=== PATIENT | male | born 1965 | race Caucasian/White ===

== ENCOUNTER 2021-05-12 04:00 | Emergency (ER) | payer MEDICARE, MEDICAID ==
[~2021-05-12] VITALS: Ht 177.8 cm; Wt 77.3 kg
[~2021-05-12 04:00] MED LIST: AMBIEN 10MG10 MG PO; BENTYL 20MG20 MG/TAB PO; CENTRUM SILVER1 CTB PO; CYMBALTA 60MG60 MG PO; LEVAQUIN 750MG750 M1 PO; LEXAPRO 10MG10 MG PO; NEURONTIN300 MG/CAP PO; NEXIUM 40MG40 MG PO; PERCOCET 325 MG1 TA2 PO; PRAVACHOL 40MG40 MG PO; TYLENOL PM PO; ULTRAM 50MG TAB50 MG PO
[2021-05-12 04:01] VITALS: TEMP 97.4
[2021-05-12 04:52] LABS: BASO # 0.1 K/mm3 (0.0-0.2); BASO % 0.5 % (0.0-2.0); EOS % 0.3 % (0-4.0); GRAN # 11.2 K/mm3 (1.4-6.5); GRAN % 72.8 % (42.2-75.2); HEMATOCRIT 49.7 % (42.0-52.0); HEMOGLOBIN 16.6 g/dl (13.5-18.0); LYMPH # 3.1 K/mm3 (1.2-3.4); LYMPH % 20.3 % (20.0-51.0); MEAN CELL VOLUME 90 fl (80.0-100.0); MEAN CORPUSCULAR HEMOGLOBIN 30 pg (27.0-31.0); MEAN CORPUSCULAR HGB CONC 33 g/dl (33.0-37.0); MEAN PLATELET VOLUME 10.2 fl (7.4-10.4); MONO # 0.9 K/mm3 (0.1-0.6); MONO % 5.7 % (1.7-9.3); PLATELET COUNT 331 K/mm3 (130-400); REDCELL DISTRIBUTION WIDTH-CV 13.3 % (11.5-14.5)
[2021-05-12 05:21] LABS: ALANINE AMINOTRANSFERASE 40 U/L (0-55); ALBUMIN 4.2 gm/dL (3.5-5.0); ALKALINE PHOSPHATASE 97 U/L (40-150); ANION GAP 16 mmol/L (7-16); AST,SGOT 34 U/L (5-34); BILIRUBIN,TOTAL 0.8 mg/dL (0.2-1.2); BLOOD UREA NITROGEN 14 mg/dL (8-26); CALCIUM 10.9 mg/dL (8.4-10.2); CARBON DIOXIDE 19 mmol/L (22-29); CHLORIDE 106 mmol/L (98-107); CREATININE, serum 1.07 mg/dL (0.72-1.25); GLUCOSE 156 mg/dL (70-99); POTASSIUM 4.5 mmol/L (3.5-4.5); SODIUM 141 mmol/L (136-145); TOTAL PROTEIN 8.9 gm/dL (6.2-8.1)
[2021-05-12 05:27] LABS: ALCOHOL(ethanol),MEDICAL < 10 mg/dL (0-10)
[2021-05-12] MEDS ORDERED: NORCO 325 MG-51 TAB PO (05:56)
[2021-05-12 06:13] VITALS: BP 165/104; PULSE 98
== END 2021-05-12 06:14 | disposition home or self-care (01) ==
LOC: COL.ER 04:00
PROVIDERS: Personal Emergency Response Attendant
DX: S09.90XA Unspecified injury of head, initial encounter (principal); S70.02XA Contusion of left hip, initial encounter; S00.31XA Abrasion of nose, initial encounter; S00.411A Abrasion of right ear, initial encounter; F17.200 Nicotine dependence, unspecified, uncomplicated; Y08.02XA Assault by strike by baseball bat, initial encounter; Y92.009 Unspecified place in unspecified non-institutional (private) residence as the place of occurrence of the external cause
CPT/HCPCS: J3010; J7030

== ENCOUNTER 2022-05-04 15:25 | Emergency (ER) | payer MEDICARE, MEDICAID ==
[~2022-05-04] VITALS: Ht 180.3 cm; Wt 77.3 kg
[~2022-05-04 15:25] MED LIST changes: +NORCO 325 MG-51 TAB PO
[2022-05-04 15:28] VITALS: TEMP 98.6
[2022-05-04 17:09] LABS: BASO # 0.1 K/mm3 (0.0-0.2); BASO % 0.9 % (0.0-2.0); EOS # 0.1 K/mm3 (0.0-0.7); EOS % 1.1 % (0.0-4.0); GRAN # 3.5 K/mm3 (1.4-6.5); GRAN % 43.4 % (42.2-75.2); HEMATOCRIT 42.6 % (42.0-52.0); LYMPH # 3.9 K/mm3 (1.2-3.4); LYMPH % 47.8 % (20.0-51.0); MEAN CELL VOLUME 90 fl (80.0-100.0); MEAN CORPUSCULAR HEMOGLOBIN 30 pg (27-31); MEAN CORPUSCULAR HGB CONC 33 g/dl (33.0-37.0); MEAN PLATELET VOLUME 9.8 fl (7.4-10.4); MONO # 0.5 K/mm3 (0.1-0.6); MONO % 6.6 % (1.7-9.3); PLATELET COUNT 397 K/mm3 (130-400); RED BLOOD COUNT 4.72 M/mm3 (4.20-5.60); REDCELL DISTRIBUTION WIDTH-CV 13.6 % (11.5-14.5)
[2022-05-04 17:33] LABS: C-REACTIVE PROTEIN 0.39 mg/dL (0.00-0.50)
[2022-05-04 17:42] LABS: INR 1.1 (0.8-3.0); PROTHROMBIN TIME 12.6 SECONDS (9.7-12.8)
[2022-05-04 17:45] LABS: PARTIAL THROMBOPLASTIN TIME 34.7 SECONDS (26.0-37.0)
[2022-05-04 17:57] LABS: CHLORIDE 106 mmol/L (98-107); SODIUM 140 mmol/L (136-145)
[2022-05-04 17:59] LABS: ALBUMIN 3.5 gm/dL (3.5-5.0); CALCIUM 9.2 mg/dL (8.4-10.2); GLUCOSE 101 mg/dL (70-99); TOTAL PROTEIN 8.6 gm/dL (6.2-8.1)
[2022-05-04 18:00] LABS: BILIRUBIN,TOTAL 0.4 mg/dL (0.2-1.2)
[2022-05-04 18:02] LABS: CREATININE, serum 0.91 mg/dL (0.72-1.25)
[2022-05-04 18:03] LABS: ALKALINE PHOSPHATASE 76 U/L (40-150); BLOOD UREA NITROGEN 23 mg/dL (8-26)
[2022-05-04 18:04] LABS: AST,SGOT 31 U/L (5-34)
[2022-05-04 18:05] LABS: ALANINE AMINOTRANSFERASE 26 U/L (0-55); ANION GAP 10 mmol/L (7-16); CARBON DIOXIDE 24 mmol/L (22-29)
[2022-05-04 18:07] LABS: TROPONIN-I < 0.010 ng/mL (0.00-0.033)
[2022-05-04 18:15] LABS: THYROID STIMULATING HORMONE 1.149 uIU/mL (0.350-4.940)
[2022-05-04 18:23] LABS: COLLECTION METHOD CLEAN CATCH
[2022-05-04 18:41] LABS: MUCOUS Present (NOT PRESENT); SQUAMOUS EPITHELIAL None Seen /hpf (0-10); URINE BACTERIA None Seen /hpf (NONE SEEN); URINE RBC 0-2 /hpf (0-2)
[2022-05-04 18:43] LABS: URINE APPEARANCE Clear (CLEAR/HAZY); URINE BLOOD TRACE-INTACT (NEGATIVE); URINE COLOR Yellow (YELLOW); URINE GLUCOSE Negative (NEGATIVE); URINE KETONE Negative (NEGATIVE); URINE NITRATE Negative (NEGATIVE); URINE PROTEIN(semi-quant) Negative (NEGATIVE); URINE UROBILINOGEN 0.2 E.U/dL (0.2-1.0)
[2022-05-04 18:47] LABS: TRICYCLIC ANTIDEPRESS URINE NEGATIVE
[2022-05-04 19:10] VITALS: BP 155/99; PULSE 108
== END 2022-05-04 19:27 | disposition left against medical advice (07) ==
LOC: COL.ER 15:25
PROVIDERS: Emergency Medicine; Nurse Practitioner Family
DX: I48.20 Chronic atrial fibrillation, unspecified (principal); R79.89 Other specified abnormal findings of blood chemistry; F17.210 Nicotine dependence, cigarettes, uncomplicated; Z28.310 Unvaccinated for COVID-19
CPT/HCPCS: J1644

== ENCOUNTER 2023-03-23 10:22 | Inpatient (IN) | payer OTHER, MEDICARE, MEDICAID ==
[~2023-03-23] VITALS: Ht 177.8 cm; Wt 85.1 kg
[2023-03-23] VITALS (7 sets, daily range): BP systolic 119–144; BP diastolic 59–94; PULSE 55–100; TEMP 97.4–98.2
[2023-03-23] MEDS ORDERED: PRINIVIL40 MG PO (10:51)
[2023-03-23 14:30] LABS: BASO # 0.1 K/mm3 (0.0-0.2); EOS # 0.1 K/mm3 (0.0-0.7); GRAN # 5.1 K/mm3 (1.4-6.5); GRAN % 53.2 % (42.2-75.2); HEMATOCRIT 41.7 % (42.0-52.0); HEMOGLOBIN 14.3 g/dl (13.5-18.0); LYMPH # 3.4 K/mm3 (1.2-3.4); LYMPH % 35.2 % (20.0-51.0); MEAN CELL VOLUME 88 fl (80.0-100.0); MEAN CORPUSCULAR HEMOGLOBIN 30 pg (27-31); MEAN CORPUSCULAR HGB CONC 34 g/dl (33.0-37.0); MONO # 0.9 K/mm3 (0.1-0.6); MONO % 9.3 % (1.7-9.3); PLATELET COUNT 366 K/mm3 (130-400); RED BLOOD COUNT 4.73 M/mm3 (4.20-5.60); REDCELL DISTRIBUTION WIDTH-CV 14.2 % (11.5-14.5)
[2023-03-23 14:42] LABS: PARTIAL THROMBOPLASTIN TIME 36.9 SECONDS (26.0-37.0)
[2023-03-23 14:46] LABS: MAGNESIUM 1.8 mg/dL (1.6-2.6)
[2023-03-23 14:48] LABS: ALBUMIN 3.9 gm/dL (3.4-4.8); BILIRUBIN,TOTAL 0.7 mg/dL (0.2-1.2); CALCIUM 9.8 mg/dL (8.4-10.2); CREATININE, serum 0.82 mg/dL (0.72-1.25); TOTAL PROTEIN 8.2 gm/dL (6.2-8.1)
[2023-03-23 15:08] LABS: TSH w REFLEX 1.457 uIU/mL (0.350-4.940)
--- NOTE | 2023-03-23 20:25 | NUR ---
Patient assessed at this time. Denies having pain and discomfort. Continues on Heparin drip and Cardizem drip per orders. HRI, telemetry a-fib, rate 80-100s. Asymptomatic. Aware of plan for becky/cv tomorrow, and being NPO after midnight. Given snack as requested. Voices no questions, needs, or concerns at this time. In bed with call light within reach. Remains in police custody.
--- NOTE | 2023-03-23 22:30 | NUR ---
At approximately 2044, lab called and stated that they would be comming up to draw HepXa. Explained that it was scheduled for 2129, and is very time sensitive, and could not be drawn until that time. Voiced understanding. This nurse called down to lab at 2144 and asked about HepXa, and lab stated that they would be up. Called again at this time, stated that they had just drawn it and results are pending.
--- NOTE | 2023-03-23 23:01 | NUR ---
[place]'s HepXa goal. Had been drawn around 2200. Order to recheck at 0400.
[2023-03-24] VITALS (15 sets, daily range): BP systolic 115–174; BP diastolic 64–93; PULSE 54–83; TEMP 97.5–98.1
[2023-03-24 04:42] LABS: CALCIUM 9.4 mg/dL (8.4-10.2); CREATININE, serum 0.85 mg/dL (0.72-1.25); MAGNESIUM 1.9 mg/dL (1.6-2.6); POTASSIUM 3.5 mmol/L (3.5-4.5)
[2023-03-24 04:48] LABS: TROPONIN-I 0.011 ng/mL (0.00-0.033)
--- NOTE | 2023-03-24 05:21 | NUR ---
Patient's HepXa goal, this is the 2nd goal in a row. Recheck HepXa in the morning.
--- NOTE | 2023-03-24 05:55 | NUR ---
Continues on Heparin drip and Cardizem drip per orders. Remains in Afib on telemetry, rate controlled at rest, 80s but does increase to the 100s with ambulation. Voices no questions, needs, or concerns at this time. Has been NPO since midnight. In bed with call light within reach. Remains in police custody.
--- NOTE | 2023-03-24 09:25 | NUR ---
Initial visit; Patient thanked Electric Organ Checker for offering God's blessings and keeping [place] in her prayers. Bhargav is accompanied by a Director Of Teacher Education to whom thanked for his service.
[2023-03-24 09:34] LABS: BASO # 0.1 K/mm3 (0.0-0.2); EOS # 0.1 K/mm3 (0.0-0.7); EOS % 1.6 % (0.0-4.0); GRAN # 3.5 K/mm3 (1.4-6.5); GRAN % 41.2 % (42.2-75.2); HEMATOCRIT 39.1 % (42.0-52.0); HEMOGLOBIN 13.2 g/dl (13.5-18.0); LYMPH # 3.9 K/mm3 (1.2-3.4); LYMPH % 46.3 % (20.0-51.0); MEAN CELL VOLUME 90 fl (80.0-100.0); MEAN CORPUSCULAR HEMOGLOBIN 30 pg (27-31); MEAN CORPUSCULAR HGB CONC 34 g/dl (33.0-37.0); MEAN PLATELET VOLUME 10.4 fl (7.4-10.4); MONO # 0.8 K/mm3 (0.1-0.6); MONO % 9.7 % (1.7-9.3); PLATELET COUNT 342 K/mm3 (130-400); RED BLOOD COUNT 4.34 M/mm3 (4.20-5.60); REDCELL DISTRIBUTION WIDTH-CV 14.6 % (11.5-14.5)
--- NOTE | 2023-03-24 13:08 | NUR ---
PER HOSPITALIST PATIENTS SHAKIR-SCAN WAS NEGATIVE AND PATIENT IS CLEARED FOR SURGERY THIS RN CALL Mayito HENDRICKS, WHO SAID THAT HE WOULD LIKE TAKE PATIENT TO SURGERY TOMORROW AFTERNOON, AND HEPARIN DRIP WOULD NEED TO BE STOPPED 8 HOURS PRIOR. THIS RN LEFT VOICEMAIL FOR PREKINDERGARTEN TEACHER TELECINE OPERATOR NUT PICKER.
--- NOTE | 2023-03-24 15:17 | NUR ---
Shafting Worker [facility] and verified [facility] will [facility] there at time of discharge.
--- NOTE | 2023-03-24 23:14 | NUR ---
UPON SHIFT ASSESSMENT, MUNDO WAS AGREEABLE AND FISH CLEANER WAS BEDSIDE. HE DENIED PAIN, SOA AND ANKLES WERE SHACKLED TO BED WITH NORMAL SKIN APPEARENCE. PEDAL PULSES WERE PALPABLE. BOWEL SOUNDS WERE AUDIBLE IN ALL QUADRANTS AND ABDOMEN WAS SOFT. MUNDO STATED HE IS READY FOR HIS BILATERAL OPEN HERNIA REPAIR TOMORROW. HIS VITAL SIGNS ARE CURRENTLY STABLE.
[2023-03-25] VITALS (20 sets, daily range): BP systolic 117–170; BP diastolic 54–89; PULSE 56–85; TEMP 97.4–98.7
[2023-03-25 06:35] LABS: BASO # 0.1 K/mm3 (0.0-0.2); BASO % 1.1 % (0.0-2.0); EOS # 0.2 K/mm3 (0.0-0.7); EOS % 1.8 % (0.0-4.0); GRAN # 3.8 K/mm3 (1.4-6.5); HEMATOCRIT 38.9 % (42.0-52.0); HEMOGLOBIN 12.9 g/dl (13.5-18.0); LYMPH # 3.6 K/mm3 (1.2-3.4); LYMPH % 41.7 % (20.0-51.0); MEAN CELL VOLUME 94 fl (80.0-100.0); MEAN CORPUSCULAR HEMOGLOBIN 31 pg (27-31); MEAN CORPUSCULAR HGB CONC 33 g/dl (33.0-37.0); MEAN PLATELET VOLUME 9.8 fl (7.4-10.4); MONO # 0.9 K/mm3 (0.1-0.6); MONO % 10.2 % (1.7-9.3); PLATELET COUNT 345 K/mm3 (130-400); RED BLOOD COUNT 4.15 M/mm3 (4.20-5.60); REDCELL DISTRIBUTION WIDTH-CV 14.7 % (11.5-14.5)
[2023-03-25 06:56] LABS: CALCIUM 9.2 mg/dL (8.4-10.2); CREATININE, serum 0.87 mg/dL (0.72-1.25); POTASSIUM 3.8 mmol/L (3.5-4.5)
--- NOTE | 2023-03-25 07:13 | NUR ---
UPON END OF SHIFT ASSESSMENT, MUNDO WAS SLEEPING SOUNDLY. SKIN ON RT FOOT WITH SHACKLES IS NORMAL AND INTACT. OFFICER WAS BEDSIDE. VSS ARE WNL.
--- NOTE | 2023-03-25 08:00 | NUR ---
PATIENT LAYING IN BED. REPORTS NO PAIN WHEN LAYING.INGUINAL PAIN WITH MOVEMENT. PATIENT REMAINS NPO. OFFICER AT BEDSIDE. CALL LIGHT WITHIN REACH. BED AT LOWEST POSITION.
--- NOTE | 2023-03-25 14:00 | NUR ---
PATIENT DOES NOT HAVE A VTE.PATIENT IS GOING TO SURGERY FOR HERNIA REPAIR LATER TODAY.
[2023-03-25] MEDS ORDERED: NORCO 325 MG-51 TAB PO ×2 (20:06→20:07)
--- NOTE | 2023-03-25 21:55 | NUR ---
UPON RETURN FROM OR FOR BILATERAL INGUINAL HERNIA REAPAIR, MUNDO WAS A&O X 3 AND REQUESTING FOOD. HE RATED HIS PAIN 5/10 AND TYLENOL 1000MG WAS ADMINISTERED. VSS WERE WNL AND INCISION EDGES LOOKED WELL APPROXIMATED WITH NO REDNESS, DRAINAGE OR SWELLING.
--- NOTE | 2023-03-25 23:01 | NUR ---
MUNDO C/O 6/10 PAIN AND "GETTING WORSE". HE IS 2 HOURS POST OP FOR BILATERAL OPEN INGUINAL REPAIR AND 1000MG TYLENOL WAS GIVEN AT 21:30. PLACED CALL TO HOSPITALIST TIFF GUADARRAMA AND RECIEVED TORB FOR 2MG MORPHINE IV
--- NOTE | 2023-03-25 23:30 | NUR ---
MUNDO IS A&O X 4 AND EATING A COOKIE. HE STILL RATES HIS PAIN 4/10 AND "GETTING WORSE."
--- NOTE | 2023-03-25 23:49 | NUR ---
MUNDO RATED PAIN 7/10.
[2023-03-26] VITALS (7 sets, daily range): BP systolic 109–136; BP diastolic 60–94; PULSE 75–87; TEMP 97.3–98.8
--- NOTE | 2023-03-26 01:24 | NUR ---
MUNDO RATES HIS PAIN 4/10.
--- NOTE | 2023-03-26 01:49 | NUR ---
MUNDO HAS PROGRESSED TO FULL DIET NOW AND RATES HIS PAIN 4/10. HE ASKED THAT I LOOK AT HIS INCISIONS. HE WAS CONCERNED THAT COUGHING MAY HAVE CAUSED HARM. INCISION EDGES WELL APPROXIMATED.
[2023-03-26 05:46] LABS: BASO % 0.1 % (0.0-2.0); GRAN # 11.7 K/mm3 (1.4-6.5); GRAN % 86.8 % (42.2-75.2); LYMPH # 1.5 K/mm3 (1.2-3.4); MEAN CELL VOLUME 94 fl (80.0-100.0); MEAN CORPUSCULAR HEMOGLOBIN 31 pg (27-31); MEAN CORPUSCULAR HGB CONC 33 g/dl (33.0-37.0); MONO # 0.2 K/mm3 (0.1-0.6); MONO % 1.6 % (1.7-9.3); PLATELET COUNT 348 K/mm3 (130-400); RED BLOOD COUNT 3.88 M/mm3 (4.20-5.60); REDCELL DISTRIBUTION WIDTH-CV 14.6 % (11.5-14.5)
[2023-03-26 05:52] LABS: HEMATOCRIT 36.5 % (42.0-52.0)
[2023-03-26 06:09] LABS: CALCIUM 9.1 mg/dL (8.4-10.2); CREATININE, serum 1.33 mg/dL (0.72-1.25); POTASSIUM 4.2 mmol/L (3.5-4.5)
--- NOTE | 2023-03-26 06:41 | NUR ---
END OF SHIFT ASSESSMENT FOR MUNDO REVEALED NO COMPLICATIONS OR EMERGENT STATUS FOLLOWING HIS BILATERAL INGUINAL REPAIR. HE IS RESTING AND VSS ARE WNL. CALL LIGHT WITHIN REACH AND OFFICER IS BEDSIDE.
[2023-03-26 08:24] LABS: COLLECTION METHOD CLEAN CATCH
[2023-03-26] MEDS ORDERED: CARDIZEM CD 12120 MG PO ×2 (08:33)
[2023-03-26] MEDS ORDERED: PACERONE200 MG PO ×2 (08:33)
[2023-03-26 08:37] LABS: MUCOUS Present (NOT PRESENT); SQUAMOUS EPITHELIAL 0-2 /hpf (0-10); URINE BACTERIA None Seen /hpf (NONE SEEN); URINE RBC None Seen /hpf (0-2)
[2023-03-26 08:46] LABS: URINE APPEARANCE Clear (CLEAR/HAZY); URINE BLOOD Negative (NEGATIVE); URINE COLOR Yellow (YELLOW); URINE GLUCOSE 1+ (NEGATIVE); URINE KETONE 1+ (NEGATIVE); URINE NITRATE Negative (NEGATIVE); URINE PROTEIN(semi-quant) TRACE (NEGATIVE); URINE UROBILINOGEN 0.2 E.U/dL (0.2-1.0)
[2023-03-26] MEDS ORDERED: ASPIRIN E.C. 8181 MG PO ×2 (09:02)
--- NOTE | 2023-03-26 11:35 | NUR ---
Patient in pleasant mood this morning. Shift assessment complete, no new variances noted. Incisions to groin bilaterally are CDI with no redness, swelling, or warmth noted. Patient reports mild pain, PRN Tylenol administered. Patient currently in bed with call light in reach, [facility] officer at bedside. All needs met at this time.
--- NOTE | 2023-03-26 12:59 | NUR ---
Discharge instructions discussed with patient and [employer] officer including post-op care and signs of infection, follow-up appointments, and new medications. Specific date and times of appointments not discussed with patient per [facility] facility request. Fax sent by to facility regarding follow-up care. [employer] officer stated there is a nurse at the facility and that some officers administer medications as well. Education provided on new medications and officer informed anyone administering medication should read through education packets as well. Patient verbalized understanding. IV discontinued to left hand with no complications. Telemetry off. Patient escorted out by RC and staff via wheelchair.
--- NOTE | 2023-03-26 13:45 | NUR ---
Digestion Operator contacted [facility] and was transferred to the medical department. SW was advised they can draw labs and transport patient to any needed follow up appointments. SW was advised not to tell patient about follow ups for safety purposes. ASPEN notified RN, then faxed discharge orders to [facility].
[2023-03-26] MEDS ORDERED: NORCO 325 MG-51 TAB PO (17:10)
== END 2023-03-26 13:00 | DRG 352 ==
LOC: SDCO 10:22 → MEDICAL 15:25 → SDCO 15:40 → MEDICAL 15:41
PROVIDERS: Internal Medicine; Nurse Practitioner; Surgery; ADMIT Internal Medicine
PROC: 0YUA0JZ Supplement Bilateral Inguinal Region with Synthetic Substitute, Open Approach (ICD-10-PCS; principal; 2023-03-23 12:30)
DX: K40.90 Unilateral inguinal hernia, without obstruction or gangrene, not specified as recurrent (principal); I48.91 Unspecified atrial fibrillation; N43.3 Hydrocele, unspecified; R30.0 Dysuria; I10 Essential (primary) hypertension
CPT/HCPCS: A9500-JZ; C1781; J0690; J1100; J1644; J1885; J2270; J2405; J2704; J2785; J3010; J7120

== ENCOUNTER 2024-01-20 13:40 | Emergency (ER) | payer OTHER ==
[~2024-01-20] VITALS: Ht 180.3 cm; Wt 98.6 kg
[~2024-01-20 13:40] MED LIST changes: +ASPIRIN E.C. 8181 MG PO; +CARDIZEM CD 12120 MG PO; +CIPRO 500MG TA500 MG PO; +PACERONE200 MG PO; +PRINIVIL40 MG PO; +TOPROL XL 50MG50 MG PO
[2024-01-20 13:45] VITALS: TEMP 97.6
[2024-01-20 14:28] VITALS: BP 140/82; PULSE 61
== END 2024-01-20 14:35 | disposition home or self-care (01) ==
LOC: COL.ER 13:40
DX: L02.11 Cutaneous abscess of neck (principal); K08.89 Other specified disorders of teeth and supporting structures; Z88.1 Allergy status to other antibiotic agents